=== PATIENT | female | born 1990 | race Caucasian/White ===

== ENCOUNTER 2018-12-15 04:07 | Emergency (ER) | payer MEDICAID ==
[~2018-12-15] VITALS: Ht 149.9 cm; Wt 68.0 kg
[2018-12-15 08:43] VITALS: BP 102/70
== END 2018-12-15 08:53 | disposition home or self-care (01) ==
LOC: ER 04:07
DX: R44.0 Auditory hallucinations (principal); R44.1 Visual hallucinations; R05 Cough; R09.81 Nasal congestion; T50.995A Adverse effect of other drugs, medicaments and biological substances, initial encounter; Y92.098 Other place in other non-institutional residence as the place of occurrence of the external cause
CPT/HCPCS: 99283